=== PATIENT | female | born 1940 | race Caucasian/White ===

== ENCOUNTER 2017-04-02 07:56 | Day surgery (SDC) | payer OTHER ==
[2017-04-01 10:04] VITALS: BMI 22.6
[2017-04-02] MEDS ORDERED: PROPOFOL 20 ML ONE ×2 (07:59)
[2017-04-02 08:53] VITALS: TEMP 97.5
[2017-04-02 09:16] VITALS: BP 116/47; PULSE 64
== END 2017-04-02 09:20 | disposition home or self-care (01) ==
LOC: FASU-ENDO 07:56
PROVIDERS: ATTEND Internal Medicine Gastroenterology
PROC: 0DJD8ZZ Inspection of Lower Intestinal Tract, Via Natural or Artificial Opening Endoscopic (ICD-10-PCS; principal; 2017-04-02 08:27)
DX: Z12.11 Encounter for screening for malignant neoplasm of colon (principal); K57.30 Diverticulosis of large intestine without perforation or abscess without bleeding